=== PATIENT | male | born 1980 | race Caucasian/White ===

== ENCOUNTER 2020-06-11 00:19 | Observation (INO) | payer OTHER, SELFPAY ==
[2020-06-11] VITALS (8 sets, daily range): BP systolic 135–160; BP diastolic 71–108; PULSE 49–80; RESP 10–20; TEMP 35.8–36.7; O2SAT 99–100; BMI 40.7; BMI 37.9
--- NOTE | 2020-06-11 00:45 | CT_ITS ---
STUDY: CT ABDOMEN AND PELVIS WITH CONTRAST REASON FOR EXAM: Male, 39 years old. ABD PAIN SINCE 11 PM, N/V X 3 RADIATION DOSAGE (If Supplied By Facility): CTDIvol = ( 15.02 ) mGy, DLP = ( 1500.06 ) mGycm TECHNIQUE: Transaxial images were obtained from the dome of the diaphragm to the symphysis pubis without oral contrast. IV 100mL Isovue-300 was administered. Sagittal and coronal images were reconstructed. Individualized dose optimization techniques were used for this CT. COMPARISON: None. FINDINGS: The visualized lung bases are unremarkable. The visualized portions of the heart are within normal limits. Normal liver. Normal gallbladder and extrahepatic biliary system. Small low-attenuation structure within the posterior and inferior aspect of the spleen measuring 0.8 x 0.9 cm, too small to characterize and statistically consistent with benign process given age and absence of known neoplasm. Otherwise normal spleen . Normal pancreas. Normal bilateral adrenal glands. Right upper renal pole exophytic low-attenuation structure measuring 1.5 cm with HOUNSFIELD units consistent with a cyst. Otherwise normal right kidney. Normal left kidney. Normal visualized stomach. Normal small intestine. Normal colon. The appendix is visualized and appears normal. Normal abdominal aorta. Normal inferior vena cava. Normal retroperitoneum. Normal urinary bladder. Normal abdominal wall. Degenerative disease of the lower thoracic spine. IMPRESSION: CT/Abdomen/Pelvis W IV Cont ONLY IMPRESSION: No acute appendicitis or bowel obstruction. Small cyst within the right kidney as described. Likely small cyst within the spleen. If indicated, this may be confirmed with ultrasound in nonacute setting. Otherwise unremarkable CT of the abdomen and pelvis. Electronically Signed: Dianna Robles MD at 1:38 EST , Service support ,
--- NOTE | 2020-06-11 00:45 | ED.VIS.GEN ---
History of Present Illness Chief Complaint: Abd Pain Informant: Patient Narrative: 39-year-old male presents with 1.5 hours of upper abdominal pain. He states symptoms began at 2300. Sharp stabbing epigastric and right upper quadrant pain associated with nausea and vomiting. He ate pizza around 1900 hrs. He denies any diarrhea. He denies any prior occurrences of this pain. Patient denies any cough or shortness of breath. No prior abdominal surgeries Past Medical History - Allergies and Home Meds Allergies/Adverse Reactions: Allergies No Known Allergies Allergy (Verified 04/02/14 19:53) Primary Care Physician: Suresh Hearn MD [Primary Care Provider] - Past Medical History: None Surgical History: noncontributory Smoking Status: Never smoker Drugs: None Review of Systems General: Denies: Chills, Fever, Sweats Eyes: Denies: Visual changes - bilaterally, Diplopia ENT: Denies: Rhinorrhea, Sore throat Cardiovascular: Denies: Chest pain, Palpitations Respiratory: Denies: Dyspnea, Cough, Dyspnea on exertion Gastrointestinal: Reports: Abdominal pain, Nausea, Vomiting. Denies: Diarrhea, Melena, Hematochezia Genitourinary: Denies: Dysuria, Hematuria, Frequency Musculoskeletal: Denies: Back pain, Extremity Pain Skin: Denies: Rash, Wounds Neurological: Denies: Headache, Weakness, Numbness Physical Exam Vital Signs/Narrative: Vital Signs Temp Pulse Resp BP Pulse Ox 06/11/20 00:20 96.4 F L 52 L 18 146/84 H 100 General: Well nourished, Well developed, Obese, - - Patient is holding his upper abdomen and writhing on the bed Head: Normocephalic, Atraumatic Eyes: Perrl, EOMI ENT: Moist mucous membranes, No rhinorrhea Neck: Supple, Nontender Cardiovascular: Regular rate, Regular rhythm, No murmurs Respiratory: No distress, CTA bilaterally, Chest nontender Abdomen: Soft, Nondistended, Normal bowel sounds, Tender - RUQ, Guarding Back: Nontender, Normal Inspection Extremities: Nontender, No edema Skin: Normal color, No rash Neurological: Alert, Oriented x3, Cranial nerves II-XII grossly intact, Normal Strength, Normal Sensation Psychological: Normal affect, Normal Mood Diagnostic/Tx/Re-eval Laboratory Last Values WBC 11.7 K/mm3 (4.4-11.0) H 06/11/20 00:35 RBC 5.38 M/mm3 (4.6-6.2) 06/11/20 00:35 Hgb 15.9 g/dL (13.0-16.5) 06/11/20 00:35 Hct 46.6 % (40-54) 06/11/20 00:35 MCV 86.6 fL (80-94) 06/11/20 00:35 MCH 29.6 pg (27.0-32.0) 06/11/20 00:35 MCHC 34.1 g/dL (32-36) 06/11/20 00:35 RDW Std Deviation 38.3 fl (35.1-43.9) 06/11/20 00:35 RDW Coeff of Nickolas 12.2 % (11.6-14.6) 06/11/20 00:35 Plt Count 275 K/mm3 (150-450) 06/11/20 00:35 MPV 10.3 fl (6.2-12.0) 06/11/20 00:35 Immature Gran % (Auto) 0.400 % (0.0-0.9) 06/11/20 00:35 Neut % (Auto) 53.3 % (47-70) 06/11/20 00:35 Lymph % (Auto) 34.1 % (19-41) 06/11/20 00:35 [place] % (Auto) 8.0 % (0-10) 06/11/20 00:35 Eos % (Auto) 3.3 % (0-5) 06/11/20 00:35 Baso % (Auto) 0.9 % (0-1) 06/11/20 00:35 Absolute Neuts (auto) 6.2 X10^3/uL (2.0-7.7) 06/11/20 00:35 Absolute Lymphs (auto) 3.99 X10^3/uL (0.83-4.51) 06/11/20 00:35 Nucleated RBC % 0 % (0-5) 06/11/20 00:35 Sodium 143 mmol/L (136-145) 06/11/20 00:35 Potassium 3.6 mmol/L (3.5-5.1) 11/15/20 00:35 Chloride 110 mmol/L (98-107) H 06/11/20 00:35 Carbon Dioxide 26.0 mmol/L (21.0-32.0) 06/11/20 00:35 Anion Gap 7 (5-15) 06/11/20 00:35 BUN 21 mg/dL (7-18) H 06/11/20 00:35 Creatinine 1.08 mg/dL (0.70-1.30) 06/11/20 00:35 Estim Creat Clear Calc 97.80 ml/min 06/11/20 00:35 Est GFR (MDRD) Af Amer 98 mL/min (>60) 06/11/20 00:35 Est GFR (MDRD) Non-Af 81 mL/min (>60) 06/11/20 00:35 BUN/Creatinine Ratio 19.4 RATIO (10-20) 06/11/20 00:35 Glucose 134 mg/dL (74-106) H 06/11/20 00:35 Calcium 9.2 mg/dL (8.5-10.1) 06/11/20 00:35 Total Bilirubin 0.50 mg/dL (0.20-1.00) 06/11/20 00:35 AST 14 U/L (15-37) L 06/11/20 00:35 ALT 36 U/L (16-61) 06/11/20 00:35 Alkaline Phosphatase 107 U/L (45-117) 06/11/20 00:35 Total Protein 7.6 g/dL (6.4-8.2) 06/11/20 00:35 Albumin 3.8 g/dL (3.2-5.0) 06/11/20 00:35 Globulin 3.8 g/dL (2.2-4.2) 06/11/20 00:35 Albumin/Globulin Ratio 1.0 RATIO (0.9-2.4) 06/11/20 00:35 Lipase 124 U/L (73-393) 06/11/20 00:35 Clinical Impression(s) from Imaging Studies Abdomen/Pelvis CT 06/11/20 00:45 IMPRESSION: No acute appendicitis or bowel obstruction. Small cyst within the right kidney as described. Likely small cyst within the spleen. If indicated, this may be confirmed with ultrasound in nonacute setting. Otherwise unremarkable CT of the abdomen and pelvis. Electronically Signed: Dianna Mischiu, MD at 1:38 EST , Service support , - EKG Initial EKG Interpretation: Sinus Bradycardia - EKG demonstrates a sinus bradycardia at a rate of 51. There are no concerning features of ACS - Medical Decision Making Patient received IV fluids Dilaudid and Zofran. Basic labs showed a white count 11.7. Normal LFTs and lipase. CT the abdomen pelvis was read as negative for acute. As I review the CT myself I see what is appears to be cholelithiasis in the neck of the gallbladder. Clinically he has right upper quadrant tenderness and guarding. I spoke with on-call surgeon Dr. Wright. As ultrasound is not readily available at this moment we are going to admit him pain ultrasound in the morning. We will be giving him Zosyn. He has been redosed with Dilaudid for continued pain. ED Disposition - Plan for ED Patient: Disposition: [facility] Diagnosis: Biliary colic, Cholecystitis Referrals: Suresh Hearn MD [Primary Care Provider] -
[2020-06-11] MEDS: Ondansetron 4 MG/2 ML Vial IV (00:52)
[2020-06-11 00:53] LABS: Absolute Lymphocyte Count 3.99 X10^3/uL (0.83-4.51); Absolute Neutrophil Count 6.2 X10^3/uL (2.0-7.7); Basophil# 0.11 X10^3/uL; Basophil% 0.9 % (0-1); Eosinophil# 0.39 X10^3/uL; Eosinophils% 3.3 % (0-5); Hematocrit 46.6 % (40-54); Hemoglobin 15.9 g/dL (13.0-16.5); Lymphocyte # 3.99 X10^3/ul (4.0); Lymphocyte % 34.1 % (19-41); Mean Corp Hgb Conc 34.1 g/dL (32-36); Mean Corpuscular Hgb 29.6 pg (27.0-32.0); Mean Corpuscular Volume 86.6 fL (80-94); Mean Platelet Vol. 10.3 fl (6.2-12.0); Monocyte# 0.93 X10^3/uL; NRBC Flagged by Analyzer 0 % (0-5); Neutrophil # 6.22 X10^3/uL (2.7-7.7); Neutrophil % 53.3 % (47-70); Platelet Count 275 K/mm3 (150-450); RBC Distribution Width CV 12.2 % (11.6-14.6); RBC Distribution Width SD 38.3 fl (35.1-43.9); Red Blood Count 5.38 M/mm3 (4.6-6.2); White Blood Count 11.7 K/mm3 (4.4-11.0)
[2020-06-11] MEDS: 0.9% Normal Saline 1,000 ML 1000 ML IV (00:53)
[2020-06-11] MEDS: HYDROmorphone 1 MG/ML Syringe IV (00:53)
--- NOTE | 2020-06-11 00:57 | EKG12_ITS ---
Test Reason : ABDOMINAL PAIN Blood Pressure : / mmHG Vent. Rate : 051 BPM Atrial Rate : 051 BPM P-R Int : 172 ms QRS Dur : 088 ms QT Int : 414 ms P-R-T Axes : 033 085 031 degrees QTc Int : 381 ms Sinus bradycardia with sinus arrhythmia Confirmed by JAEL FONTANEZ, ANGELI ([id number]), manuscript editor ALEKS TAVERAS ([id number]) on 06/13/2020 12:51:16 PM Referred By: ALESSANDRO Confirmed By:ANGELI ELDER MD
[2020-06-11 01:08] LABS: AST(SGOT) 14 U/L (15-37); Alanine Aminotransfer ALT/SGPT 36 U/L (16-61); Albumin, Serum 3.8 g/dL (3.2-5.0); Alkaline Phosphatase 107 U/L (45-117); Anion Gap 7 (5-15); BUN 21 mg/dL (7-18); BUN/Creat Ratio 19.4 RATIO (10-20); Calcium,Total 9.2 mg/dL (8.5-10.1); Chloride 110 mmol/L (98-107); Creatinine, Serum 1.08 mg/dL (0.70-1.30); EST Glomerular Filtration Rate 81 mL/min (>60); Est Glom Filt Rate - Afr Amer 98 mL/min (>60); Globulin 3.8 g/dL (2.2-4.2); Glucose 134 mg/dL (74-106); Lipase 124 U/L (73-393); Potassium 3.6 mmol/L (3.5-5.1); Protein, Total 7.6 g/dL (6.4-8.2); Sodium Level 143 mmol/L (136-145)
[2020-06-11] MEDS: HYDROmorphone 0.5 MG/0.5 ML SYRINGE IV ×2 (01:50→03:18)
[2020-06-11] MEDS: 0.9% Normal Saline 1,000 ML 125 ML IV ×2 (03:15→11:36)
[2020-06-11] MEDS: 0.9% Saline Lock 10 ML Syringe IV (03:18)
--- NOTE | 2020-06-11 05:55 | US_ITS ---
STUDY: ABDOMINAL ULTRASOUND - RIGHT UPPER QUADRANT REASON FOR VISIT: Male, 39 years old acute cholecystitis TECHNIQUE: Ultrasound evaluation of the right upper quadrant was performed with real-time and static allen-scale imaging. TECHNICAL QUALITY: Adequate. COMPARISON: CT today FINDINGS: Liver: The liver measures 16 cm. There is increased echogenicity of the liver. The bile ducts are within normal limits. There is hepatic color flow. The direction of portal flow is hepatopetal. There is no demonstrated mass lesion. Gallbladder: Partially distended gallbladder. The gallbladder wall measures 5 mm. There is a positive sonographic Jorge''s sign. There is pericholecystic fluid. There are multiple echogenic structures within the gallbladder, consistent with multiple gallstones. Common Bile Duct (C.B.D.): The common bile duct measures 4 mm. Pancreas: There is increased echogenicity of the pancreas. There is no demonstrated pancreatic mass or cyst. Right Kidney: Normal size of the right kidney. The right kidney measures 10.1 x 5.1 x 5.5 cm. Normal renal cortex. The right cortex measures 10.1 x 5.3 x 5.5 cm. There is an anechoic cyst of the superior right kidney measuring 1.6 cm. There is no right hydronephrosis. US/Gallbladder IMPRESSION: 1. Cholelithiasis with gallbladder wall thickening, pericholecystic fluid and sonographic JORGE sign compatible with history provided of acute cholecystitis. 2. Fatty infiltration of the liver and pancreas. Electronically Signed: Ranjith Carmen MD (Brooks) at 13:14 EST , Service support ,
--- NOTE | 2020-06-11 09:24 | HP.PCM_ITS ---
Problem List (1) Biliary colic Status: Acute (2) Cholecystitis Status: Acute History of Present Illness Date of Admission: 06/11/20 The patient is a 39 year old M who had right upper quadrant pain last night. The patient reports he ate pizza in the evening and then around 11:00 PM he started having sharp right upper quadrant pain that radiated into his chest. The patient did have nausea and vomiting. The patient reports that he has had mild right upper quadrant pain intermittently for the last year. He is not having a fever but he was having chills last night and does report sweating. He is not having any cough or shortness of breath. Past Medical History Allergies No Known Allergies Allergy (Verified 06/11/20 02:40) Home Medications: Ambulatory Orders Medication Instructions Recorded NK 06/11/20 Surgical History: noncontributory Smoking Status: Never smoker Drugs: None - *Family History Maternal History Items: No pertinent history Review of Systems Constitutional: Denies: Anorexia, Fever HEENT: Denies: Difficulty Swallowing Cardiovascular: Denies: Chest Pain Respiratory: Denies: Cough, Shortness of Breath Gastrointestinal: Reports: Abdominal Pain, Nausea, Vomiting Genitourinary: Denies: Dysuria Skin: Denies: Jaundice Neurological: Denies: Balance problems Hematologic/ Lymphatic: Denies: Anemia VTE Information - Inpt Only VTE Present on Admission: No VTE Mechan Device Prophylaxis: SCD's Patient Problems: Active and Suspected Problems Biliary colic (Acute) Cholecystitis (Acute) - Physical Exam Vitals/I&O's: Vital Signs Temp Pulse Resp BP Pulse Ox 98 F 76 20 H 135/71 H 99 06/11/20 08:26 06/11/20 08:26 06/11/20 08:26 06/11/20 08:26 06/11/20 08:26 Oxygen Delivery Method Room Air Weight: 272 lb 0.807 oz Body Mass Index (BMI) 37.9 Intake and Output for Last 24 Hours 06/09/20 06/10/20 06/11/20 23:59 23:59 23:59 Intake Total 1100 / 1100 Balance 1100 / 1100 General: Alert, Oriented x3 Neck: No JVD Lungs: Normal air movement Cardiovascular: Regular rate, Regular Rhythm Abdomen: Soft, Non Tender, Non-Distended Microbiology Past 72 Hours 06/11/20 02:09 Mucosa - Nasopharyngeal SARS-CoV-2 Antigen (Rapid) - Final Laboratory Results 06/11/20 00:35: WBC 11.7 H, RBC 5.38, Hgb 15.9, Hct 46.6, MCV 86.6, MCH 29.6, MCHC 34.1, RDW Std Deviation 38.3, RDW Coeff of Nickolas 12.2, Plt Count 275, MPV 10.3, Immature Gran % (Auto) 0.400, Neut % (Auto) 53.3, Lymph % (Auto) 34.1, [place] % (Auto) 8.0, Eos % (Auto) 3.3, Baso % (Auto) 0.9, Absolute Neuts (auto) 6.2, Absolute Lymphs (auto) 3.99, Nucleated RBC % 0 06/11/20 00:35: Sodium 143, Potassium 3.6, Chloride 110 H, Carbon Dioxide 26.0, Anion Gap 7, BUN 21 H, Creatinine 1.08, Estim Creat Clear Calc 97.80, Est GFR (MDRD) Af Amer 98, Est GFR (MDRD) Non-Af 81, BUN/Creatinine Ratio 19.4, Glucose 134 H, Calcium 9.2, Total Bilirubin 0.50, AST 14 L, ALT 36, Alkaline Phosphatase 107, Total Protein 7.6, Albumin 3.8, Globulin 3.8, Albumin/Globulin Ratio 1.0, Lipase 124 Current Medications Hydromorphone HCl (Hydromorphone 0.5 Mg/0.5 Ml Syringe) 0.5 mg IV Q2H PRN PRN PRN Reason: PAIN -05/06 Last Admin: 06/11/20 03:18 Dose: 0.5 mg Documented by: Sodium Chloride () 1,000 mls @ 125 mls/hr IV .Q8H CAROLE Last Admin: 06/11/20 03:15 Dose: 125 mls/hr Documented by: Piperacillin Sod/Tazobactam (Sod 3.375 gm/ Sodium Chloride) 50 mls @ 12.5 mls/hr IV Q8 CAROLE Sodium Chloride () 250 mls @ 15 mls/hr IV .[id number] PRN PRN Reason: Saline Flush Sodium Chloride () 250 mls @ 15 mls/hr IV .[id number] PRN PRN Reason: Additional IVPB Infusion Ondansetron HCl (Ondansetron 4 Mg/2 Ml Vial) 4 mg IV Q8H PRN PRN PRN Reason: nausea/vomiting Sodium Chloride (0.9% Saline Lock 10 Ml Syringe) 10 - 40 ml IV UD PRN PRN Reason: SALINE FLUSH Last Admin: 06/11/20 03:18 Dose: 10 ml Documented by: Assessment/Plan All Active Problems Biliary colic (Acute) Cholecystitis (Acute) 39-year-old male with acute cholecystitis and cholelithiasis 1. Patient was admitted from the ER last night with right upper quadrant pain and an elevated white count with nausea and vomiting. The patient reports that his pain is dissipated and he is feeling better this morning. After reviewing his CT scan it does appear to show cholelithiasis. He is having ultrasound today to see if there is thickening of the wall. 2. Given the fact that he has biliary colic symptoms for the last year and he did have an elevated white count with nausea vomiting I believe he had acute cholecystitis and he was started on antibiotics. I recommend laparoscopic cholecystectomy and we will plan for this tomorrow. 3. I discussed the procedure in detail with the patient. I discussed the risks, benefits, and alternatives of the procedure. I discussed the risks including but not limited to bleeding, infection, injury to surrounding organs such as the liver, bile duct, bowels. I did discuss the possibility of having to convert to an open procedure as well as the possibility that if any injuries occurred this may necessitate further surgery at a tertiary care center. Ismael Solis MD Pager: [facility] [address] [place] [address] [address] [place] [address] Office:
[2020-06-12] VITALS (11 sets, daily range): BP systolic 134–179; BP diastolic 80–104; PULSE 58–86; RESP 16–18; TEMP 36.4–37.3; O2SAT 93–100; BMI 37.9
--- NOTE | 2020-06-12 | GALL_PTH ---
PATIENT: [place] ENGL[place] LOC: MS3 U#:[id number] AGE/SX: 39/M ROOM: MS311 RE06/11/[address]: Dr. Kellie Wright MD : 1980 BED: 1 DIS: 06/12/2020 SPEC #: [id number] RECD: 06/12/20 14:52 STATUS: TAE REQ #: [id number] FRANCO: 06/12/20 00:[address]: Kellie Wright DEPT: SURGICAL PATHOLOGY RECD BY: Ashley Thakkar ENTERED: 06/13/20 07:40 SP TYPE: ANTOINE ROBINS DR: Dr. Suresh Hearn MD Tissues: Gallbladder, NOS Procedures: Surgery Specimen Level III HEADER OPERATION: Laparoscopic cholecystectomy with IOC PRE-OP DIAGNOSIS: Biliary colic, cholecystitis TISSUE SUBMITTED: Gallbladder MICROSCOPIC DIAGNOSIS Gallbladder, cholecystectomy: Cholesterolosis, acute and chronic cholecystitis and cholelithiasis. AM:justice 06/14/20 MICROSCOPIC DESCRIPTION Slides are reviewed. GROSS DESCRIPTION Received is one container labeled with the patient's name and designated gallbladder. The specimen consists of a gallbladder measuring 8 x 3 x 2.5 cm. The external surface is smooth and glistening. Focally, it is granular, hemorrhagic and contains cautery artifact. The lumen of the gallbladder contains yellow-green mucoid bile and multiple yellow stones ranging in size from 0.8 to 1.2 cm. The mucosa is bile-stained and without any mass lesions. The gallbladder wall averages 0.4 cm in thickness and is free of mass lesions. Log Chain Worker sections of the gallbladder and the cystic duct at margin of resection are submitted in one cassette. / AM:justice 06/13/20 TC:2 CPT: 02927
[2020-06-12] MEDS: 0.9% Normal Saline 1,000 ML 125 ML IV ×2 (04:04→16:52)
--- NOTE | 2020-06-12 13:38 | RAD_ITS ---
STUDY: INTRAOPERATIVE CHOLANGIOGRAM. REASON FOR EXAM: Male, 39 years old. Cholangiogram. Laparoscopic cholecystectomy. FLUOROSCOPY TIME (if supplied): ( 34.9 seconds ) minutes/seconds TECHNIQUE: An intraoperative cholangiogram was performed by the surgeon. A cine loop of 180 images was submitted. COMPARISON: None. FINDINGS: The intrahepatic biliary ducts are unremarkable. The common bile duct is not dilated. No intraluminal filling defect is seen. There is free flow of contrast into the duodenum. RAD/Cholangiogram/ O R,Initial IMPRESSION: Unremarkable intraoperative cholangiogram. Electronically Signed: Miguel Angel Ramos, at 8:28 EST , Service support ,
[2020-06-12] MEDS: Lactated Ringers 1,000 ML 100 ML IV (13:45)
[2020-06-12] MEDS: Bupiv/Epi 0.25% 30 ML Vial (14:35)
--- NOTE | 2020-06-12 14:39 | OP.PCM_ITS ---
Problem List (1) Biliary colic Status: Acute (2) Cholecystitis Status: Acute Report of Operation Date of Procedure: 06/12/20 Pre-Operative Diagnosis: Acute cholecystitis Post-Operative Diagnosis: Same Surgery/Procedure Performed:: Laparoscopic cholecystectomy with cholangiogram Specimen's removed: Gallbladder and contents Description of Procedure: After obtaining informed consent patient was brought back to the operating room. General anesthesia was induced. The abdomen was prepped and draped in usual sterile fashion. A small midline incision was made superior to the umbilicus and deepened to the level of fascia. The fascia was elevated and incised. Next the peritoneum was elevated and incised in the same fashion. Finger sweep was performed and the Cramer trocar was placed into the abdomen. The balloon was inflated. The abdomen was inflated to 15 mmHg. Next a camera was introduced into the abdomen and the abdomen was inspected. Next under direct visualization three 5-mm ports were placed one subxiphoid and 2 subcostal. Next the gallbladder was elevated and retracted toward the right shoulder. The peritoneum was stripped from the gallbladder. The gallbladder was very inflamed. The infundibulum was located and retracted laterally. Next the triangle of Calot was dissected and the cystic duct and cystic artery were identified. Cholangiograms were performed. The Pfeiffer clamp was used to clamp across the infundibulum and the catheter needle was inserted into the gallbladder. Under fluoroscopy contrast was instilled into the gallbladder and the common duct, cystic duct as well as proximal hepatic ducts were identified. There was good filling of the duodenum. There were no filling defects noted in the common bile duct. The clamp was removed as well as the needle and the infundibulum was grasped once more. Three hemolock clips were placed across the cystic duct. The cystic duct was then divided leaving 2 clips on the stump. The cystic artery was clipped and divided in the same fashion. The hook cautery was then used to take the gallbladder off of the gallbladder bed. Hemostasis was obtained. Gallbladder fossa was irrigated and no active bleeding or bile leakage was noted. Next the camera was introduced in the subxiphoid port. An Endopouch bag was placed through the umbilical port and the gallbladder was placed into it. The gallbladder was then removed through the umbilical incision. The camera was then reinserted through the umbilical port. The gallbladder fossa was inspected once more and noted to be hemostatic with no leaking bile. The abdomen was suctioned dry. The 5 mm ports were removed under direct visualization. The umbilical port was then removed and the air was removed from the abdomen. Next using an 0 Vicryl suture the umbilical fascia was closed in a [id number] fashion. The umbilical port site was irrigated local anesthetic was administered to all the incisions. All the incisions were closed with interrupted subcuticular 4-0 Monocryl sutures followed by Steri- Strips and dressings. The patient was awoken and taken to PACU in stable condition. - Admit VTE Documentation VTE Mechan Device Prophylaxis: SCD's
--- NOTE | 2020-06-12 14:47 | DCINST_ITS ---
Discharge Diet: Light diet - advance as tolerated Discharge Activity: Return to Normal Activity, May Not Drive - for 2-3 days or while taking narcotic pain medicataions., - - Do not drive, work heavy equipment or sign legal documents for 24 hours. May shower in (days): 1 - with the bandage in place. Lifting Restrictions: 20 lbs for 2 weeks Additional Activity Instructions:: Pain medication may cause nausea. You should typically eat light foods as you take your pain medications. Pain medication may also cause constipation. If this is a problem for you, please discuss with your doctor. Call your doctor if your incision/area has: Continuous Slow Oozing, Sudden Increased Bleeding, Increased Pain/ Swelling, Increased Redness, Foul Smelling Discharge, Fever of 101 or Higher Call your doctor if you observe: Fever of 101 or Higher Suture Line Care: Avoid Pulling/Pushing, Avoid Pinching/Bending Additional Dressing/Incision Instructions:: Leave operative bandaids on for 2 days. When you remove dressing, leave Steri-Strips on until your follow-up appointment, or until the Steri-Strips fall off on their own. Allergies/Adverse Reactions: Allergies No Known Allergies Allergy (Verified 06/11/20 02:40) Medications to take at Discharge Acetaminophen [Tylenol Tablet] 650 mg PO Q4H PRN PRN tablet 06/12/20 Oxycodone [Oxyir] 5 - 10 mg PO Q4H PRN PRN 5 Days #30 tablet 06/12/20 The following prescriptions were given: Oxycodone [Oxyir] 5 - 10 mg PO Q4H PRN PRN 5 Days #30 tablet PRN Reason: Pain Score 4-10/10 Transmission Status: Sent to [facility] Primary Care Physician: Suresh Hearn MD [Primary Care Provider] - Test Results: Test results from this visit will be discussed in further detail at your follow- up appointment, if applicable. Please Follow Up With: Ismael Solis MD When: Please call to schedule 2 week follow up appointment. [phone]
[2020-06-12] MEDS: Acetaminophen 325 MG Tablet 650 MG PO (18:07)
== END 2020-06-12 19:20 | disposition home or self-care (01) ==
LOC: ED 01:50 → MS3 02:38
PROVIDERS: Surgery; Admitting Provider Surgery; Emergency Provider Emergency Medicine; PCP Family Medicine; Visit Provider Surgery
PROC: (CPT 47610; principal; 2020-06-12 12:10)
DX: K80.12 Calculus of gallbladder with acute and chronic cholecystitis without obstruction (principal)
CPT/HCPCS: 00790; 47563; 74177; 74300; 76000; 76705; 80053; 83690; 85025; 87426; 88304; 93005; 96365; 96366; 96375; 96376; 99218; 99284; J7030; J7050; J7120; Q9967; A4216; G0378; J2405

== ENCOUNTER 2020-06-16 14:05 | Emergency (ER) | payer OTHER, SELFPAY ==
[2020-06-12 11:48] VITALS: BMI 37.9
[2020-06-16 14:06] VITALS: BP 149/108; PULSE 94; RESP 18; TEMP 36; O2SAT 98; BMI 38.3
--- NOTE | 2020-06-16 15:18 | CT_ITS ---
STUDY: CT ABDOMEN AND PELVIS WITH CONTRAST REASON FOR EXAM: Male, 39 years old. RIGHT SIDED AB PAIN , HAD GALLBLADDER OUT 5 DAYS AGO RADIATION DOSAGE (If Supplied By Facility): CTDIvol = ( 17.07 ) mGy, DLP = ( 1378.82 ) mGycm TECHNIQUE: Transaxial images were obtained from the dome of the diaphragm to the symphysis pubis without oral contrast. Oral and amp;amp; IV Gastrografin and amp;amp; 100mL Isovue-370 was administered. Sagittal and coronal images were reconstructed. Individualized dose optimization techniques were used for this CT. COMPARISON: 06/11/2020 FINDINGS: The visualized lung bases are unremarkable. The visualized portions of the heart are within normal limits. Normal liver. Status post recent cholecystectomy with a 4.0 x 7.5 cm oval fluid collection with some gas in the gallbladder fossa consistent with a postoperative seroma. Normal spleen. Normal pancreas. Normal bilateral adrenal glands. Normal right kidney. Normal left kidney. Normal visualized stomach. Normal small intestine. Normal colon. The appendix is visualized and appears normal. Normal abdominal aorta. Normal inferior vena cava. Normal retroperitoneum. Normal urinary bladder. Normal abdominal wall. Normal osseous structures. CT/Abdomen/Pelvis WITH Contrast IMPRESSION: Status post recent cholecystectomy with a 4.0 x 7.5 cm postoperative seroma with fluid and gas in the gallbladder fossa. Electronically Signed: Mirza Mederos MD at 17:47 EST Tel , Service support ,
[2020-06-16 15:28] VITALS: BP 131/79; PULSE 81; RESP 16; TEMP 36.4; O2SAT 99
[2020-06-16] MEDS: 0.9% Normal Saline 1,000 ML 1000 ML IV (15:43)
[2020-06-16 15:49] LABS: Bacteria 0 SEEN /hpf (None Seen); Mucous, Urine 0 SEEN /hpf (<or=2+); Red Blood Cells-Urine 0 SEEN /hpf (0-5); White Blood Cells 0 SEEN /hpf (0-5)
[2020-06-16 15:51] LABS: Color, Urine Yellow (Yellow); Glucose, Dipstick Normal (Normal); Ketone-Dipstick Negative (Negative); Leukocyte Esterase-Dipstick Negative /ul (Negative); Nitrite-Dipstick Negative (Negative); Occult Blood-Urine Negative /ul (Negative); Protein-Dipstick Negative (Negative); Specific Gravity, Urine 1.015 (1.002-1.030); Urine Bilirubin Dipstick Negative (Negative); Urine Clarity Sl. Cloudy (Clear); Urine Urobilinogen Normal (Normal)
[2020-06-16 15:56] LABS: Absolute Lymphocyte Count 2.03 X10^3/uL (0.83-4.51); Absolute Neutrophil Count 10.8 X10^3/uL (2.0-7.7); Basophil# 0.09 X10^3/uL; Basophil% 0.6 % (0-1); Eosinophil# 0.26 X10^3/uL; Eosinophils% 1.8 % (0-5); Hematocrit 48.9 % (40-54); Hemoglobin 16.2 g/dL (13.0-16.5); Lymphocyte # 2.03 X10^3/ul (4.0); Lymphocyte % 14.4 % (19-41); Mean Corp Hgb Conc 33.1 g/dL (32-36); Mean Corpuscular Hgb 29.6 pg (27.0-32.0); Mean Corpuscular Volume 89.2 fL (80-94); Monocyte# 0.88 X10^3/uL; Monocyte% 6.2 % (0-10); NRBC Flagged by Analyzer 0 % (0-5); Neutrophil # 10.78 X10^3/uL (2.7-7.7); Neutrophil % 76.4 % (47-70); Platelet Count 324 K/mm3 (150-450); RBC Distribution Width CV 12.1 % (11.6-14.6); RBC Distribution Width SD 39.6 fl (35.1-43.9); Red Blood Count 5.48 M/mm3 (4.6-6.2); White Blood Count 14.1 K/mm3 (4.4-11.0)
--- NOTE | 2020-06-16 16:05 | ED.DCSUM_ITS ---
History of Present Illness Informant: Patient - Abdominal Pain/Flank Pain Onset: Today Context: Sudden Onset Timing: Intermittent Quality: Sharp, Stabbing Location: RUQ, RLQ, Right Flank Current Severity: Moderate Maximum Severity: Severe Worsened by: Movement Relieved by: Nothing - Nausea/Vomiting/Emesis GI Symptom: Nausea. Negative for: Vomiting - Diarrhea/Melena/Hematochezia GI Symptom: Negative for: Diarrhea, Melena, Hematochezia Associated Symptoms: Negative for: Dysuria, Frequency, Hematuria, Urgency Narrative: 39-year-old male presents emergency department with right upper quadrant pain right lower quadrant pain and right flank pain. Started suddenly couple of hours ago. Patient had a cholecystectomy about [address] Solis. He has been doing well up until this afternoon. he has not had a normal bowel movement yet he did have a small bowel movement 2 days ago but has been passing gas. he has not had a fever. he has been having no vomiting. he has been able to eat and drink and urinating normally. No drainage from his surgical incisions. Prior similar symptoms: Yes Recent Illness/Hospitalization: Yes <Ismael Calderón - Last Filed: 06/16/20 16:05> <Ezekiel Monson - Last Filed: 06/16/20 19:11> Chief Complaint: Abd Pain Past Medical History Prior records reviewed: Yes Past Medical History: None Surgical History: cholecystectomy Lives: With Family Smoking Status: Never smoker Alcohol: Occasional Drugs: None - Family History Maternal Family History: Reports: No pertinent history <Ismael Calderón - Last Filed: 06/16/20 16:05> <Ezekiel Monson - Last Filed: 06/16/20 19:11> - Allergies and Home Meds Allergies/Adverse Reactions: Allergies No Known Allergies Allergy (Verified 06/16/20 14:08) Primary Care Physician: Suresh Hearn MD [Primary Care Provider] - Review of Systems All systems negative except as indicated General: Denies: Chills, Fever, Sweats Eyes: Denies: Visual changes - bilaterally, Diplopia ENT: Denies: Rhinorrhea, Sore throat Cardiovascular: Denies: Chest pain, Palpitations Respiratory: Denies: Dyspnea, Cough, Dyspnea on exertion Gastrointestinal: Reports: Abdominal pain, Nausea, Constipation. Denies: Vomiting, Diarrhea, Melena, Hematochezia Genitourinary: Denies: Dysuria, Hematuria, Frequency Musculoskeletal: Denies: Back pain, Swelling, Extremity Pain Skin: Denies: Rash, Wounds Neurological: Denies: Headache, Weakness, Numbness <Ismael Calderón - Last Filed: 06/16/20 16:05> Physical Exam Vital Signs/Narrative: Vital Signs Temp Pulse Resp BP Pulse Ox 06/16/20 15:28 97.5 F L 81 16 131/79 H 99 06/16/20 14:06 96.8 F L 94 18 149/108 H 98 Inital Vital Signs reviewed: Yes General: Well nourished, Well developed, No Acute Distress Head: Normocephalic, Atraumatic Eyes: Perrl, EOMI ENT: Moist mucous membranes, No rhinorrhea Neck: Supple, Nontender Cardiovascular: Regular rate, Regular rhythm, No murmurs Respiratory: No distress, CTA bilaterally, Chest nontender Abdomen: Soft, Nondistended, Normal bowel sounds, Tender - He had tenderness to palpation right upper quadrant lower quadrant but no guarding or rebound. No peritoneal signs. Surgical incisions clean dry and intact without sign of infection or dehiscence. Back: Nontender, Normal Inspection Extremities: Nontender, No edema Skin: Normal color, No rash Neurological: Alert, Oriented x3, Cranial nerves II-XII grossly intact, Normal Strength, Normal Sensation Psychological: Normal affect, Normal Mood <Ismael Calderón - Last Filed: 06/16/20 16:05> Vital Signs/Narrative: Vital Signs Temp Pulse Resp BP Pulse Ox 06/16/20 17:00 98.6 F 61 17 124/83 H 100 06/16/20 15:28 97.5 F L 81 16 131/79 H 99 <Ezekiel Monson - Last Filed: 06/16/20 19:11> Diagnostic/Tx/Re-eval Clinical Impression(s) from Imaging Studies Abdomen/Pelvis CT 06/16/20 15:18 IMPRESSION: Status post recent cholecystectomy with a 4.0 x 7.5 cm postoperative seroma with fluid and gas in the gallbladder fossa. Electronically Signed: Mirza Mederos MD at 17:47 EST Tel , Service support , Abnormal Lab Results 06/16/20 06/16/20 06/16/20 15:25 15:25 15:40 WBC 14.1 H RBC 5.48 Hgb 16.2 Hct 48.9 MCV 89.2 MCH 29.6 MCHC 33.1 RDW Std Deviation 39.6 RDW Coeff of Nickolas 12.1 Plt Count 324 MPV 10.0 Immature Gran % (Auto) 0.600 Neut % (Auto) 76.4 H Lymph % (Auto) 14.4 L Heard % (Auto) 6.2 Eos % (Auto) 1.8 Baso % (Auto) 0.6 Absolute Neuts (auto) 10.8 H Absolute Lymphs (auto) 2.03 Nucleated RBC % 0 Sodium 138 Potassium 4.2 Chloride 105 Carbon Dioxide 30.0 Anion Gap 3 L BUN 15 Creatinine 1.09 Estim Creat Clear Calc 96.91 Est GFR (MDRD) Af Amer 97 Est GFR (MDRD) Non-Af 80 BUN/Creatinine Ratio 13.8 Glucose 97 Calcium 9.3 Total Bilirubin 0.80 AST 11 L ALT 41 Alkaline Phosphatase 96 Total Protein 7.8 Albumin 3.7 Globulin 4.1 Albumin/Globulin Ratio 0.9 Lipase 102 Urine Color Yellow Urine Clarity Sl. 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 I agree with plan and work-up. I performed on [id number] evaluation. 3 days postop cholecystectomy inpatient. Is doing well today sudden sharp pain right side abdomen subsiding on my examination. Sent in here by his surgeon Dr. Solis. Exam with laparoscope incisions clean dry and intact. Abdomen was nontender. Lab work-up had a 14,[address] scan report by radiology concerns for 4 x 7.5 cm seroma in the gallbladder fossa. He is pain-free throughout examination. I spoke with covering physician Dr. Varner, concern for possible early abscess, states less likely biliary leak with patient being symptom-free. He recommended Levaquin antibiotic to start. With patient being symptom free, he states this can be managed as an outpatient with strict return precautions. I discussed with the patient findings and plan of care. He will call Dr. Varner tomorrow to see how he is doing he will return to ED if any worsening symptoms. All questions were answered. <Ezekiel Monson - Last Filed: 06/16/20 19:11> ED Disposition <Ismael Calderón - Last Filed: 06/16/20 16:05> <Ezekiel Monson - Last Filed: 06/16/20 19:11> - Plan for ED Patient: Disposition: Home or Assisted Living Diagnosis: Post-operative complication, Seroma infection, postoperative, History of cholecystectomy Prescriptions: levoFLOXacin tablet [Levaquin tablet] 750 mg PO DAILY #7 tab Transmission Status: Pending to [facility] Referrals: Suresh Hearn MD [Primary Care Provider] - Pasha Varner MD [STAFF PHYSICIAN] - 1 Day Additional Instructions: 4 x 7.5 cm seroma. Take antibiotic as prescribed. Call discussed with Dr. Varner tomorrow morning. Return if any worsening symptoms.
[2020-06-16 16:12] LABS: ALB/GLOB Ratio 0.9 RATIO (0.9-2.4); AST(SGOT) 11 U/L (15-37); Alanine Aminotransfer ALT/SGPT 41 U/L (16-61); Albumin, Serum 3.7 g/dL (3.2-5.0); Alkaline Phosphatase 96 U/L (45-117); Anion Gap 3 (5-15); BUN 15 mg/dL (7-18); BUN/Creat Ratio 13.8 RATIO (10-20); Calcium,Total 9.3 mg/dL (8.5-10.1); Chloride 105 mmol/L (98-107); Creatinine, Serum 1.09 mg/dL (0.70-1.30); EST Glomerular Filtration Rate 80 mL/min (>60); Est Glom Filt Rate - Afr Amer 97 mL/min (>60); Estimated Creatinine Clearance 96.91 ml/min; Globulin 4.1 g/dL (2.2-4.2); Glucose 97 mg/dL (74-106); Lipase 102 U/L (73-393); Potassium 4.2 mmol/L (3.5-5.1); Protein, Total 7.8 g/dL (6.4-8.2); Sodium Level 138 mmol/L (136-145)
[2020-06-16 16:19] LABS: Squamous Epithelial Cells - UA 0-5 SEEN /hpf (0-5)
[2020-06-16 17:00] VITALS: BP 124/83; PULSE 61; RESP 17; TEMP 37; O2SAT 100
[2020-06-16] MEDS: levoFLOXacin 750 MG Tablet PO (19:14)
[2020-06-16 19:22] VITALS: RESP 16
== END 2020-06-16 19:23 | disposition home or self-care (01) ==
PROVIDERS: Emergency Provider Physician Assistant Medical; PCP Family Medicine
DX: R10.9 Unspecified abdominal pain (principal); Y83.8 Other surgical procedures as the cause of abnormal reaction of the patient, or of later complication, without mention of misadventure at the time of the procedure; Z90.49 Acquired absence of other specified parts of digestive tract
CPT/HCPCS: 74177; 80053; 81001; 83690; 85025; 99283; J7030; Q9967; A4216

== ENCOUNTER → 2021-03-01 08:17 | Outpatient (CLI) | payer OTHER, SELFPAY ==
[2021-01-15 14:03] VITALS: BMI 40.4
--- NOTE | 2021-03-01 08:21 | CT_ITS ---
STUDY: CT ABDOMEN WITH CONTRAST REASON FOR EXAM: Male, 40 years old. Ventral hernia RADIATION DOSAGE (If Supplied By Facility): CTDIvol = ( 13.68 ) mGy, DLP = ( 1034.60 ) mGycm TECHNIQUE: Transaxial images were obtained post I.V. administration of Oral and amp; IV Readi-CAT and amp; 100mL Isovue-300, and with oral contrast. Sagittal and coronal images were reconstructed. Individualized dose optimization techniques were used for this CT. COMPARISON: 06/16/2020 FINDINGS: The visualized lung bases are unremarkable. The visualized portions of the heart are within normal limits. Normal liver. Gallbladder surgically absent. Resolution of fluid collection in the gallbladder fossa evident on prior CT. Normal spleen. Normal pancreas. Normal bilateral adrenal glands. Normal right kidney. Normal left kidney. Normal visualized stomach. Normal visualized small intestine. Normal visualized colon. The appendix is visualized and appears normal. Normal abdominal aorta. Normal inferior vena cava. Normal retroperitoneum. 4.8 cm above the umbilicus, there is a midline fat-containing hernia with sac measuring 1.8 x 3.8 cm and defect/mass measuring 1.6 cm. Normal osseous structures. CT/Abdomen WITH IV Contrast IMPRESSION: 1. Supraumbilical fat-containing hernia, as above. 2. Cholecystectomy. Resolution of postoperative seroma. Electronically Signed: Ranjith Carmen MD ([place]) at 16:13 EDT , Service support ,
== END ==
PROVIDERS: Referring Provider Surgery; Visit Provider Surgery
DX: K43.9 Ventral hernia without obstruction or gangrene (principal)
CPT/HCPCS: 74160; Q9967

== ENCOUNTER 2021-06-18 10:28 | Day surgery (SDC) | payer OTHER, SELFPAY ==
--- NOTE | 2021-06-18 | HERN_PTH ---
PATIENT: [place]OOK[place] EN[place] [facility] [place][id number] AGE/SX: 40/M ROOM: RE06/18/[address]: Dr. Ismael Solis MD : 1980 BED: DIS: 06/18/2021 SPEC #: [id number] RECD: 06/18/21 14:36 STATUS: TAE [id number] #: [id number] FRANCO: 06/18/21 00:[address]: Ismael Solis DEPT: SURGICAL PATHOLOGY RECD BY: Román Alcala ENTERED: 06/19/21 09:13 SP TYPE: Hernia OTHR DR: No Primary Care Phys Tissues: HERNIA Procedures: Surgery Specimen Level II HEADER OPERATION: Laparoscopic ventral hernia repair with mesh PRE-OP DIAGNOSIS: Ventral incisional hernia TISSUE SUBMITTED: Ventral hernia sac MICROSCOPIC DIAGNOSIS Ventral hernia sac, herniorrhaphy: Hernia sac with mild fibrosis. AM:am 06/20/21 MICROSCOPIC DESCRIPTION Slides are reviewed. GROSS DESCRIPTION Received in fixative is one container labeled with the patient's name and designated ventral hernia sac. The specimen consists of multiple pieces of focally hemorrhagic adipose tissue that in aggregate measure 6 x 5 x 2.5 cm. No mass lesion is identified. Drier Tender sections are submitted in one cassette. / SJ:rg 06/19/2021 TC:5 CPT: 32478
[2021-06-18 11:04] VITALS: BP 155/98; PULSE 64; RESP 18; TEMP 36.2; O2SAT 97; BMI 39.9
[2021-06-18] MEDS: Lactated Ringers 1,000 ML 15 ML IV (11:15)
--- NOTE | 2021-06-18 11:20 | PCM.HP.BLA ---
History and Physical Date of Admission: 06/18/21 Intake Vital Signs 03/07/21 08:04 BMI 40.4 Intake Visit Reasons: F/U CT 03/01 Chief Complaint: abdominal hernia [employer] So[employer] Developer Required: No Is patient in pain?: No Allergies No Known Allergies Allergy (Verified 03/07/21 08:04) Medications acetaminophen 650 mg PO Q4H PRN PRN tab 06/12/20 [Rx Confirmed 03/07/21] PFSH Medical History Abdominal pain Biliary colic Cholecystitis Seroma Surgical History S/P cholecystectomy Family History Father Heart disease Hypertension High blood cholesterol Cancer Daughter Diabetes Social History Smoking Status: Never smoker second hand exposure: No alcohol intake: current alcohol intake frequency: a few times a month substance use type: does not use caffeine: Yes what type of physical activity do you participate in: none frequency: does not exercise HPI HPI HPI: BR[place] ENGLISH, is a 40 M who presents to the office today for follow-up after CT scan. Patient reports no changes since his last visit. He is still having ventral abdominal discomfort especially when eating a lot of food or drinking a lot of fluid. ROS General General: No weight change or fatigue HEENT HEENT: No difficulty swallowing Endo Endocrine: No thyroid disease Musc Musculoskeletal: No back problems or arthritis Cardio Cardiovascular: No pacemaker, heart disease, atrial fibrillation, high blood pressure, heart attack, heart stent, palpitations or chest pain Psych Psychiatric: No depression or anxiety Resp Respiratory: No shortness of breath, No cough, No COPD, No asthma and No emphysema Gastro Gastrointestinal: Yes abdominal pain, No nausea or vomiting, No diarrhea, No constipation, No blood in stool, No acid reflux, No hemorrhoids, No ulcers, No gallbladder problem and No black,tarry stools Reza Hematologic: No blood thinners Exam Const General: cooperative Orientation: alert and oriented x3 HENMT Head: normal to inspection Neck Neck: normal visual inspection and full ROM Chest Chest palpation & inspection: normal inspection of the chest Resp Effort & Inspection: normal respiratory effort Auscultation: clear to auscultation bilaterally Cardio Rate: regular rate Rhythm: regular rhythm GI Inspection: non-distended Palpation: soft and nontender Skin General: no rashes or lesions noted Neuro General: patient alert and patient oriented x3 Extrem General: full ROM Psych Appearance: grossly normal Mental Status: mental status grossly normal Assessment and Plan Assessment and Plan (1) Ventral incisional hernia without gangrene: Status: Acute Plan - Dr. Ismael Solis MD: The patient has CT scan which shows a 2 cm ventral hernia at the site of the prior incision superior to the umbilicus. The patient would like this repaired. I discussed laparoscopic ventral hernia repair with mesh. I discussed the procedure in detail as well as the risks including but not limited to bleeding, infection, injury to underlying bowel, postoperative pain and recurrence of hernia. Patient understands all the risks and is when to proceed with laparoscopic ventral hernia repair with mesh. Ismael Solis MD Pager: [facility] [address] [place] [address], [address] [place] [address] Office: I have re-examined the patient. There are no clinical changes since date of exam.
[2021-06-18] MEDS: Cefazolin 2 GM in 0.9% Normal Saline 100 ML IV (11:50)
[2021-06-18] MEDS: Bupivacaine Mpf 0.5% 30 ML VIAL (12:34)
[2021-06-18 13:01] VITALS: BP 142/99; BP 155/98; PULSE 83; RESP 16; TEMP 36.4; O2SAT 94
--- NOTE | 2021-06-18 13:03 | PCM.OPRPT ---
Problems Associated Problem List Diagnoses (1) Ventral incisional hernia without gangrene: Report of Operation Date of Procedure: 06/18/21 Pre-Operative Diagnosis: Incisional ventral hernia Post-Operative Diagnosis: Same Surgery/Procedure Performed:: Open converted to laparoscopic ventral hernia repair with mesh Specimen's removed: Hernia sac Description of Procedure: Patient was brought back to the operating room and general anesthesia was used. The abdomen was prepped and draped in usual sterile fashion. An incision was made over the prior incision and deepened to the hernia sac. The hernia sac was dissected free from surrounding adhesions. Hernia sac was then entered and excised. Fascia was reapproximated using interrupted #1 Nurolon sutures that were clipped and then a port was placed through the incisional hernia. The abdomen was insufflated 15 mmHg. Under direct visualization a 5 mm port was placed in the left upper quadrant and left lower quadrant. The camera was moved to the side port and an 11 cm round ventral light ST mesh with echo positioning device was placed through the 12 port. The balloon catheter was raised through the incision and the port was removed. The sutures were tied tight reapproximate the fascia. The balloon was then inflated and the abdomen was reinsufflated. Secure strap tacks were used to secure the mesh in 4 quadrants and then the balloon was removed through one of the side ports. Next circumferential row of tacks were placed as well as tacks in the middle the mesh. There is good coverage of the hernia. The abdomen is a lot of desufflate. The ventral incision was irrigated and suctioned dry hemostasis was obtained using electrocautery. The deep tissue was closed with interrupted 3-0 Vicryl sutures. All the skin incisions were injected with local anesthetic and closed with interrupted 4-0 Monocryl suture. Steri-Strips and bandages were applied. Patient was taken to PACU stable condition. Grafts/Implants Used: 11 [address] light ST m mesh Admit VTE Documentation VTE Mechan Device Prophylaxis: SCD's
--- NOTE | 2021-06-18 13:09 | EX.PCM.DISCH ---
Discharge Instructions Procedure Hernia Diet Discharge Diet: Light diet - advance as tolerated Activity Discharge Activity: May Not Drive (for 2-3 days or while taking narcotic pain meds.) and May Shower (with the bandage in place 1-2 days after surgery.) Lifting Restrictions: 20 pounds for 6 weeks. Additional Activity Instructions:: Climbing stairs is fine, walking is encouraged. Sitting in bed may be uncomfortable. Sitting up using your lateral muscles (sitting up sideways) is usually more comfortable. Do not drive, work heavy equipment of sign legal documents for 24 hours. An ice pack can provide more comfort. Pain medications may cause nausea, you should typically eat light foods as you take your pain medications. Pain medications may also cause constipation. If you have difficulty with this, discuss with your doctor. Dressing / Incision Call your doctor if your incision/area has: Continuous Slow Oozing, Sudden Increased Bleeding, Increased Pain/ Swelling, Increased Redness and Foul Smelling Discharge Call your doctor if you observe: Fever of 101 or Higher Suture Line Care: Avoid Pulling/Pushing and Avoid Pinching/Bending Remove Dressing in: 2 days Cleanse incision/area with: Soap & Water Follow Up Care Please Follow Up With: Ismael Solis MD When: Please call to schedule 2 week follow up appointment. [phone] Test Results: Test results from this visit will be discussed in further detail at your follow-up appointment, if applicable. Discharge Plan Admission Attending Provider: Ismael Solis Primary Care Provider: Rach PhysicianBeckie Primary Discharge Orders/Prescriptions Prescriptions: New oxycodone-acetaminophen [Percocet] 5-325 mg tablet 1 tab PO Q4H PRN (Reason: pain) 5 Days Qty: 30 RF: 0 No Action acetaminophen 325 MG tablet 650 mg PO Q4H PRN PRN (Reason: Pain Or Fever) RF: 0 Referrals / Follow Up: Care Physician,Beckie Primary [Primary Care Provider] - Disposition Disposition (needs filled in before D/C Order can be placed): Home, Self Care
[2021-06-18 13:23] VITALS: BP 142/95; BP 155/98; PULSE 66; RESP 16; TEMP 36.8; O2SAT 95
[2021-06-18 13:30] VITALS: BP 146/84; BP 155/98; PULSE 78; RESP 16; O2SAT 98
[2021-06-18 13:44] VITALS: BP 145/84; BP 155/98; PULSE 60; RESP 16; TEMP 36.3; O2SAT 96
[2021-06-18 14:55] VITALS: BP 137/77; BP 155/98; PULSE 69; RESP 16; TEMP 36.2; O2SAT 98
== END 2021-06-18 14:58 | disposition home or self-care (01) ==
LOC: SDC 10:29 → AC 10:31
PROVIDERS: Referring Provider Surgery; Visit Provider Surgery
PROC: 0WQF4ZZ Repair Abdominal Wall, Percutaneous Endoscopic Approach (ICD-10-PCS; CPT 49654; principal; 2021-06-18 11:10)
DX: K43.2 Incisional hernia without obstruction or gangrene (principal)
CPT/HCPCS: 49654; 88302; J7120; J2405